=== PATIENT | female | born 1985 | race African-American/Black ===

== ENCOUNTER 2020-06-25 19:51 | Emergency (ER) | payer SELFPAY ==
[2020-06-25 20:05] VITALS: BP 135/88
[2020-06-25] MEDS ORDERED: IBUPROFEN 800 MG TABLET PO ONE (20:07)
--- NOTE | 2020-06-25 20:12 | ER Document Report ---
ED Extremity Problem, Lower - General Chief Complaint: Fall Injury Stated Complaint: FALL/RIGHT PINKY TOE INJURY/RIGHT LEG PAIN Time Seen by Provider: 06/25/20 19:58 Primary Care Provider: [facility] ([facility]) [Provider Group] - Follow up as needed ANDERS CANTU DO [NO LOCAL MD] - Follow up as needed Mode of Arrival: Ambulatory Information source: Patient Notes: 35-year-old female presented to ED for complaint of pain to the fifth toe on the right foot as well as the foot and ankle. She states 2 nights ago she was standing on a stool in the closet when she leaned against the wall she the stool cleaned out and she fell caught catching her toe on 1 of the rungs of the stool. She states she has been taking Tylenol and Motrin and it is not been helping with the pain. She states the toe is extremely painful. She states she has some burning in her ankle also. She is alert oriented respirations regular nonlabored speaking in full sentences. She states she took Tylenol yesterday day but has not had anything today. She states she does have a past history of sciatica with 3 back fusions. She does have plates and screws in her back. States her last menstrual cycle was June 18. REVIEW OF SYSTEMS: CONSTITUTIONAL : Denies fever, chills, or sweats. Denies recent illness. CARDIOVASCULAR: Denies chest pain. RESPIRATORY: Denies cough, cold, or chest congestion. Denies shortness of breath, difficulty breathing, or wheezing. MUSCULOSKELETAL: Pain in right foot fifth toe and ankle after falling on a stool catching her toe on the rungs of the stool SKIN: Denies rash or skin lesions. ALL OTHER SYSTEMS REVIEWED AND NEGATIVE. VITAL SIGNS: Within normal limits. GENERAL: No acute distress, non-toxic appearance. HEAD: Normal with no signs of head trauma. NECK: Normal range of motion, no tenderness, supple, no lymphadenopathy, No adenopathy, no JVD. CHEST: Clear breath sounds bilaterally. No wheezes, rales, or rhonchi. CARDIAC: Regular rate and rhythm. S1 and S2, without murmurs, gallops, or rubs. MUSCULOSKELETAL: Tenderness to right ankle/foot/fifth toe swelling and bruising to fifth toe NEUROLOGICAL: Alert and oriented x 3. No focal sensory or strength deficits. Speech normal. Follows commands appropriately. SKIN: Normal appearance with no rashes or lesions. - HPI Patient complains to provider of: Injury, Pain, Swelling Location: Ankle, Foot, 5th Toe Occurred: Other - 2 Days ago Where: Home, Indoors Onset/Duration: Gradual Quality of pain: Achy, Burning Severity: Moderate Pain Level: 3 Context: Fell Recent injury: Yes Associated symptoms: Painful ambulation Exacerbated by: Hanging down, Movement, Walking Relieved by: Elevation, Ice, Rest - Related Data Allergies/Adverse Reactions: No Known Allergies Allergy (Unverified 06/25/20 20:18) Past Medical History - General Information source: Patient - Social History Smoking Status: Never Smoker Frequency of alcohol use: None Drug Abuse: None Lives with: Family Family History: Reviewed & Not Pertinent Patient has suicidal ideation: No Pulmonary Medical History: Reports: None EENT Medical History: Reports: None Neurological Medical History: Reports: None Endocrine Medical History: Reports: None Renal/ Medical History: Reports: None Malignancy Medical History: Reports: None GI Medical History: Reports: None Musculoskeletal Medical History: Reports Hx Arthritis, Reports Hx Musculoskeletal Trauma Skin Medical History: Reports None Psychiatric Medical History: Reports: None Traumatic Medical History: Reports: None Infectious Medical History: Reports: None Past Surgical History: Reports: Hx Orthopedic Surgery - 3 back fusions with plates and screws - Immunizations Immunizations up to date: Yes Hx Diphtheria, Pertussis, Tetanus Vaccination: Yes Physical Exam - Vital signs Vitals: Temp Pulse Resp BP Pulse Ox 98.1 F 65 18 135/88 H 100 06/25/20 20:02 06/25/20 20:02 06/25/20 20:02 06/25/20 20:02 06/25/20 20:02 Course - Re-evaluation Re-evalutation: 06/25/20 22:44 The patient is nontoxic appearing with stable vitals. They are afebrile. Ankle exam shows no deformities with no obvious ligament instability. There is a normal pulse and sensation distally. There is no redness or signs of infection. X-rays show no acute fracture per the radiologist. Patient will be placed in an Rober wrap for comfort. Patient will be instructed to follow-up with not better in 1 week, sooner for increasing pain, fever, redness, numbness, tingling, weakness, any further concerns. Patient will be instructed to rest, ice, elevate their ankle. - Vital Signs Vital signs: Temp Pulse Resp BP Pulse Ox 98.1 F 65 18 135/88 H 100 06/25/20 20:15 06/25/20 20:02 06/25/20 20:02 06/25/20 20:02 06/25/20 20:02 - Diagnostic Test Radiology reviewed: Image reviewed, Reports reviewed Procedures - Immobilization Right Ankle Time completed: 22:52 Pre-Proc Neuro Vasc Exam: Normal Immobilizer type: Rober wrap Performed by: RN Post-Proc Neuro Vasc Exam: Normal Alignment checked and good: Yes Discharge - Discharge Clinical Impression: Foot contusion Qualifiers: Encounter type: initial encounter Laterality: right Qualified Code(s): S90.31XA - Contusion of right foot, initial encounter Contusion of fifth toe, right Qualifiers: Encounter type: initial encounter Qualified Code(s): S90.121A - Contusion of right lesser toe(s) without damage to nail, initial encounter Right ankle pain Qualifiers: Chronicity: acute Qualified Code(s): M25.571 - Pain in right ankle and joints of right foot Condition: Stable Disposition: HOME, SELF-CARE Additional Instructions: CONTUSION: Your injury has resulted in a contusion -- a crushing of the deep tissues. No injury to important structures was detected during the physician's exam. Contusions vary in the amount of pain they cause, and in the length of time required for healing. Typically, the area will become bruised, and will remain painful to touch for two or three weeks. However, most patients are back to working and playing within a few days. After the initial period of rest and cold-packs, your symptoms (together with the doctor's recommendations) will determine how rapidly you can get back to full activity. Usually this means "do what feels okay, but don't do things that hurt." If re-examination was recommended, it's important to follow up as instructed. Call the doctor or return any time if pain increases, if swelling becomes severe, if you develop numbness or weakness in an injured extremity, or if any other alarming symptoms occur. SPRAINED ANKLE: Your sprained ankle results from stretching or tearing of the ligaments which support the ankle. This usually results from twisting the foot inward and under. The ligaments will require time and protection in order to heal properly. Many ankle sprains are quite disabling, and should be taken seriously. The usual treatment for an ankle sprain is cold packs; protection with tape, splints, or wraps; elevation; and staying off the ankle for at least a day. As the ankle improves, you can walk IF it's not painful to bear weight. Sports are best postponed until healing is complete. More serious sprains usually require strengthening exercises after early healing. Your physician has assessed the seriousness of the ligament injury to your ankle. However, the treatment may change, depending on how your ankle progresses. If further exams were recommended, it is important that you follow through. Call the doctor if your foot becomes numb, painful, or severely swollen. ROBER WRAP: A compression dressing (rober wrap) has been placed. This helps hold the area still. It limits swelling and internal bleeding. The wrap should be comfortably snug -- not tight. You should feel a sense of pressure, but not severe pain under the wrap. Unless the physician tells you otherwise, you can adjust the wrap for comfort. If the wrap causes symptoms suggesting it's too tight -- uncomfortable pressure, swelling or discoloration beyond the wrap, numbness, or severe pain -- you must loosen the wrap. If these symptoms don't resolve promptly, return for re-evaluation. ICE & ELEVATION: Apply ice packs frequently against the painful area. Many different schedules are recommended, such as "20 minutes on, 20 minutes off" or "one hour ice, two hours rest." If you need to work, you may need to go longer between ice treatments. You should plan to have the area ice packed AT LEAST one-fourth of the time. The ice should be applied over the wrap, tape, or splint, or over a layer of cloth -- not directly against the skin. Some ice bags have a built-in cloth and can be put directly on the skin. Your injured part should be elevated as much as possible over the next 48 hours. Try to keep the injury above the level of the heart. Avoid use of the injured area. Elevation and rest will decrease the swelling. USE OF [id number]-[id number] IBUPROFEN: Ibuprofen (Advil, Nuprin, Medipren, Motrin IB) is a medication for fever and pain control. In addition, it has anti- inflammatory effects which may be beneficial, especially in the treatment of injuries. It's best to take ibuprofen with food. Persons with ulcer disease or allergy to aspirin should notify their physician of this before taking ibuprofen. Ibuprofen can be given every four to six hours, for a total of four doses daily. Age Pain or fever dose Antiinflammatory dose 6-8 yr 200 mg (1 tab) 200 mg (1 tab) 9-11 yr 200 mg (1 tab) 200-400 mg (1-2 tab) 11-14 yr 200-400 mg (1-2 tab) 400 mg (2 tab) 15-adult 400 mg (2 tab) 600 mg (3 tab) USE OF TYLENOL (ACETAMINOPHEN): Acetaminophen may be taken for pain relief or fever control. It's much safer than aspirin, offering a wider range of "safe" dosages. It is safe during . Some brand names are Tylenol, Panadol, Datril, Anacin 3, Tempra, and Liquiprin. Acetaminophen can be repeated every four hours. The following are maximum recommended dosages: WEIGHT Dose Drops Elixir Chewable(80mg) (LBS.) drprs=droppers tsp=teaspoon 6 40 mg 0.4 ml (1/2) 6-11 80 mg 0.8 ml (full) tsp 1 tab 12-16 120 mg 1 1/2 drprs 3/4 tsp 1 1/2 tabs 17-23 160 mg 2 drprs 1 tsp 2 tabs 24-30 240 mg 3 drprs 1 1/2 tsp 3 tabs 30-35 320 mg 2 tsp 4 tabs 36-41 360 mg 2 1/4 tsp 4 1/2 tabs 42-47 400 mg 2 1/2 tsp 5 tabs 48-53 480 mg 3 tsp 6 tabs 54-59 520 mg 3 1/4 tsp 6 1/2 tabs 60-64 560 mg 3 1/2 tsp 7 tabs 65-70 600 mg 3 3/4 tsp 7 1/2 tabs 71-76 640 mg 4 tsp 8 tabs 77-82 720 mg 4 1/2 tsp 9 tabs 83-88 800 mg 5 tsp 10 tabs >89 pounds or adults 650 mg to 900 mg Acetaminophen can be repeated every four hours. Maximum dose not to exceed 4000 mg a day. These maximum recommended dosages are slightly higher than the dosages written on the product container, but these dosages are very safe and below the toxic dosage for acetaminophen. FOLLOW-UP CARE: If you have been referred to a physician for follow-up care, call the physicians office for an appointment as you were instructed or within the next two days. If you experience worsening or a significant change in your symptoms, notify the physician immediately or return to the Emergency Department at any time for re-evaluation. Forms: Elevated Blood Pressure Referrals: ANDERS CANTU DO [NO LOCAL MD] - Follow up as needed [facility] [Provider Group] - Follow up as needed
--- NOTE | 2020-06-25 21:15 | RADIOLOGY REPORT (SQ) ---
EXAM DESCRIPTION: XR FOOT 3 OR MORE VIEWS COMPLETED DATE/TME: 06/25/2020 20:06 CLINICAL HISTORY: 35 years, Female, Fall, pain foot ankle and fifth toe COMPARISON: None. NUMBER OF VIEWS: 3 views TECHNIQUE: Frontal, oblique, and lateral radiographs were obtained LIMITATIONS: None. FINDINGS: Visualized osseous structures are normal in appearance. Joint spaces are well-maintained. No acute fracture or dislocation is evident. IMPRESSION: No acute osseous anomaly. copyright 2010 [employer]- All Rights Reserved
--- NOTE | 2020-06-25 21:16 | RADIOLOGY REPORT (SQ) ---
EXAM DESCRIPTION: X-ray, three views of the right ankle CLINICAL HISTORY: 35 years Female, Fall, pain foot ankle and fifth toe COMPARISON: None. FINDINGS: Bone mineralization is normal. Alignment is anatomic. No fracture is seen. Soft tissues are unremarkable. No erosions or periostitis. IMPRESSION: Unremarkable radiographs of the right ankle.
== END 2020-06-25 22:26 | disposition home or self-care (01) ==
LOC: ER 19:51
DX: S90.31XA Contusion of right foot, initial encounter (principal); S90.121A Contusion of right lesser toe(s) without damage to nail, initial encounter; M25.571 Pain in right ankle and joints of right foot; M79.604 Pain in right leg; M79.671 Pain in right foot; M79.89 Other specified soft tissue disorders; W19.XXXA Unspecified fall, initial encounter
CPT/HCPCS: 99283

== ENCOUNTER 2020-10-15 13:23 | Emergency (ER) | payer SELFPAY ==
--- NOTE | 2020-10-15 15:22 | RADIOLOGY REPORT (SQ) ---
EXAM DESCRIPTION: KNEE LEFT 4 VIEW IMAGES COMPLETED DATE/TIME: 10/15/2020 3:14 pm REASON FOR STUDY: pain COMPARISON: None. NUMBER OF VIEWS: Four views. TECHNIQUE: AP, lateral, and both oblique radiographic images acquired of the left knee. LIMITATIONS: None. FINDINGS: MINERALIZATION: Normal. BONES: No acute fracture or dislocation. No worrisome bone lesions. JOINT: No effusion. SOFT TISSUES: No soft tissue swelling. No radio-opaque foreign body. OTHER: No other significant finding. IMPRESSION: NEGATIVE STUDY OF THE LEFT KNEE. NO RADIOGRAPHIC EVIDENCE OF ACUTE INJURY. TECHNICAL DOCUMENTATION: JOB ID: [id number] 2010 [employer]- All Rights Reserved Reading location - IP/workstation name: [email or web address]
--- NOTE | 2020-10-15 15:23 | RADIOLOGY REPORT (SQ) ---
EXAM DESCRIPTION: KNEE RIGHT 4 VIEWS IMAGES COMPLETED DATE/TIME: 10/15/2020 3:14 pm REASON FOR STUDY: pain COMPARISON: None. NUMBER OF VIEWS: Four views. TECHNIQUE: AP, lateral, and both oblique radiographic images acquired of the right knee. LIMITATIONS: None. FINDINGS: MINERALIZATION: Normal. BONES: No acute fracture or dislocation. No worrisome bone lesions. JOINT: No effusion. SOFT TISSUES: No soft tissue swelling. No radio-opaque foreign body. OTHER: No other significant finding. IMPRESSION: NEGATIVE STUDY OF THE RIGHT KNEE. NO RADIOGRAPHIC EVIDENCE OF ACUTE INJURY. TECHNICAL DOCUMENTATION: JOB ID: [id number] 2010 [employer]- All Rights Reserved Reading location - IP/workstation name: [email or web address]
--- NOTE | 2020-10-15 16:25 | ER Document Report ---
ED General Pain - General Chief Complaint: BILATERAL KNEE Stated Complaint: KNEE PAIN Time Seen by Provider: 10/15/20 14:55 Primary Care Provider: PEDRO,NO [Primary Care Provider] - Follow up as needed - HPI Notes: Chief complaint: Bilateral knee pain History of present illness: Generally healthy 35-year-old female taking no regular medications with no known allergies other than IV contrast presents to the emergency department complaining of chronic bilateral knee pain which has been going on for several years. She has had intermittent stiffness and pain. She denies redness or visible swelling. No fever chills. She occasionally takes Tylenol or [id number] NSAIDs with little change in symptoms. 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 She denies any history of knee trauma. She denies any sensation of the knee is locking or giving way. - Related Data Allergies/Adverse Reactions: IV contrast Allergy (Uncoded 10/15/20 15:12) Past Medical History - General Information source: Patient, Relative - Social History Smoking Status: Never Smoker Frequency of alcohol use: None Drug Abuse: None Family History: Reviewed & Not Pertinent Patient has homicidal ideation: No Musculoskeletal Medical History: Reports Hx Arthritis, Reports Hx Musculoskeletal Trauma Past Surgical History: Reports: Hx Orthopedic Surgery - 3 back fusions with plates and screws - Immunizations Immunizations up to date: Yes Hx Diphtheria, Pertussis, Tetanus Vaccination: Yes Review of Systems - Review of Systems Notes: Constitutional: Negative for fever. HENT: Negative for sore throat. Eyes: Negative for visual changes. Cardiovascular: Negative for chest pain. Respiratory: Negative for shortness of breath. Gastrointestinal: Negative for abdominal pain, vomiting or diarrhea. Genitourinary: Negative for dysuria. Musculoskeletal: As per HPI. Skin: Negative for rash. Neurological: Negative for headaches, weakness or numbness. 10 point ROS negative except as marked above and in HPI. Physical Exam - Vital signs Vitals: Temp Pulse Resp BP Pulse Ox 98.1 F 65 12 135/85 H 100 10/15/20 13:34 10/15/20 13:34 10/15/20 13:34 10/15/20 13:34 10/15/20 13:34 - Notes Notes: GENERAL: Well-developed well-nourished female approximately stated age appearing in no acute distress. SKIN: Good turgor no rashes. HEAD: Normocephalic atraumatic. EYES: PERRLA. EOMI. Conjunctivae and sclerae clear. NECK: Supple. No masses or thyromegaly. No adenopathy. Carotids 2+ without bruits. No JVD. BACK: Symmetrical without tenderness. CHEST: Respirations unlabored. Breath sounds clear and symmetrical. HEART: Regular rhythm. No murmur gallop or rub. ABDOMEN: Soft nontender without masses, organomegaly or rebound. Bowel sounds normally active. No bruits. EXTREMITIES: Prominent crepitus of both knees. Mild tenderness over the patella bilaterally. No visible swelling, redness or warmth. Good range of motion. No gross ligamentous instability. No edema. No calf tenderness. Cap refill less than 1.5 seconds. Dorsalis pedis and posterior tibial pulses 3+ and symmetrical. NEUROLOGICAL: Alert and oriented x3. Nonfocal. PSYCHIATRIC: Appropriate affect. Course - Vital Signs Vital signs: Temp Pulse Resp BP Pulse Ox 98.1 F 65 12 135/85 H 100 10/15/20 13:34 10/15/20 13:34 10/15/20 13:34 10/15/20 13:34 10/15/20 13:34 - Laboratory Results Critical Laboratory Results Reviewed: No Critical Results Attending or Supervising Physician who Reviewed Labs: ADAMA GORE - Radiology Results Radiology Results Interpreted: 10/15/20 16:23 Knee X-Ray 10/15/20 14:38 IMPRESSION: NEGATIVE STUDY OF THE LEFT KNEE. NO RADIOGRAPHIC EVIDENCE OF ACUTE INJURY. Knee X-Ray 10/15/20 14:38 IMPRESSION: NEGATIVE STUDY OF THE RIGHT KNEE. NO RADIOGRAPHIC EVIDENCE OF ACUTE INJURY. Critical Radiology Results Reviewed: No Critical Results Attending or Supervising Physician who Reviewed Radiology: ADAMA GORE Discharge - Discharge Clinical Impression: Chondromalacia of both patellae Condition: Stable Disposition: HOME, SELF-CARE Additional Instructions: Chondromalacia Your knee pain is probably due to cartilage irritation under the knee cap. This is called chondromalacia. It occurs when the knee cap isn't lined up perfectly on the joint. The cartilage on the back of the knee cap rubs on the bone. Climbing stairs and rising from a chair often cause pain. Chondromalacia is most common in young and active people. Treat the pain with ice packs and anti-inflammatory pain medicine. Avoid activities that make the pain worse. Isometric exercises to strengthen the quadriceps (thigh) muscle may help prevent further episodes. (Deep-knee bends and "quad machine" weight-lifting tend to make it worse.) In some cases, shoe inserts to correct imbalances in the legs or feet may be prescribed. Support for the knee cap with a light brace may also be helpful. Return if the knee becomes more swollen and painful, or if the symptoms aren't improving with time. You will be provided a referral for primary care physician. Medication has been prescribed for you also. You may return here as needed for new or worsening symptoms. Prescriptions: Naproxen 500 mg PO BID PRN #14 tablet PRN Reason: Referrals: PEDRO,NO [Primary Care Provider] - Follow up as needed [facility] [Provider Group] - Follow up as needed
[2020-10-15 16:49] VITALS: BP 128/80
== END 2020-10-15 16:48 | disposition home or self-care (01) ==
LOC: ER 13:23
DX: M22.42 Chondromalacia patellae, left knee (principal); M22.41 Chondromalacia patellae, right knee; M25.561 Pain in right knee; M25.562 Pain in left knee
CPT/HCPCS: 99283

== ENCOUNTER 2020-11-24 13:30 | Emergency (ER) | payer SELFPAY ==
--- NOTE | 2020-11-24 13:51 | ER Document Report ---
ED Medical Screen (RME) - General Stated Complaint: BILATERAL LEG PAIN/WEAKNESS Time Seen by Provider: 11/24/20 13:44 Primary Care Provider: ZULEMA VASQUEZ [Primary Care Provider] - Follow up as needed Notes: Patient presents complaining of lower leg pain for the past 6 months. Patient states sometimes it is her right leg sometimes at her left leg, today she complains primarily of left lower extremity pain. Patient states for the past 3 months she has been having unexplained bruising to the lower extremities. Patient states she did have some dizziness today. Patient denies any personal history of DVT or PE. Patient denies any history of recent travel or immobilization. Patient reports a family history of DVT and she was concerned about this today. Patient has also a history of previous spinal fusion although feels that her left lower extremity pain is not related to any back issues. I have greeted and performed a rapid initial assessment of this patient. A comprehensive ED assessment and evaluation of the patient, analysis of test results and completion of the medical decision making process will be conducted by additional ED providers. - Related Data Allergies/Adverse Reactions: IV contrast Allergy (Uncoded 10/15/20 15:12) Past Medical History Musculoskeltal Medical History: Reports Hx Arthritis, Reports Hx Musculoskeletal Trauma Past Surgical History: Reports: Hx Orthopedic Surgery - 3 back fusions with plates and screws - Immunizations Immunizations up to date: Yes Hx Diphtheria, Pertussis, Tetanus Vaccination: Yes Physical Exam - Vital signs Vitals: Temp Pulse Resp BP Pulse Ox 98.1 F 68 20 137/91 H 99 11/24/20 13:34 11/24/20 13:34 11/24/20 13:34 11/24/20 13:34 11/24/20 13:34 - General General appearance: Appears well, Alert Notes: Normal gait, tenderness to posterior lateral aspect of the left lower extremity Course - Vital Signs Vital signs: Temp Pulse Resp BP Pulse Ox 98.1 F 68 20 137/91 H 99 11/24/20 13:34 11/24/20 13:34 11/24/20 13:34 11/24/20 13:34 11/24/20 13:34 Doctor's Discharge - Discharge Referrals: ZULEMA VASQUEZ [Primary Care Provider] - Follow up as needed
--- NOTE | 2020-11-24 14:09 | ER Document Report ---
ED General - General Stated Complaint: BILATERAL LEG PAIN/WEAKNESS Time Seen by Provider: 11/24/20 13:44 Primary Care Provider: ZULEMA VASQUEZ [NO LOCAL MD] - Follow up as needed Notes: HPI: 35-year-old female that states for the last 2 to 3 weeks she has had some alternating pain to bilateral lower extremities. 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 She denies any chest pain, fevers, shortness of breath, or vomiting. Family history of DVT. No recent trips or travel. She states for the last few days it has been the left leg much more than the right leg. She denies any pain to the right leg at this time. ROS: See HPI All other review of systems reviewed and otherwise negative Reviewed vital signs and nursing note as charted by RN. PHYSICAL EXAM: CONSTITUTIONAL: Alert and oriented and responds appropriately to questions. We ll-appearing; well-nourished HEAD: Normocephalic; atraumatic CARD: Regular rate and rhythm; no murmurs; symmetric distal pulses RESP: Normal chest excursion without splinting or tachypnea; breath sounds clear and equal bilaterally; no wheezes, no rhonchi, no rales ABD/GI: Normal bowel sounds; non-distended; soft, non-tender BACK: The back appears normal and is non-tender to palpation EXT: Normal ROM in all joints; non-tender to palpation; no edema; excellent strong distal pulses SKIN: No acute lesions noted NEURO: CN 2-12 intact; 5/5 bilateral upper and lower extremity strength with se nsation intact to light touch PSYCH: The patient's mood and manner are appropriate. Grooming and personal hygiene are appropriate. - Related Data Allergies/Adverse Reactions: IV contrast Allergy (Uncoded 10/15/20 15:12) Past Medical History - Social History Smoking Status: Unknown if Ever Smoked Family History: Reviewed & Not Pertinent Musculoskeletal Medical History: Reports Hx Arthritis, Reports Hx Musculoskeletal Trauma Past Surgical History: Reports: Hx Orthopedic Surgery - 3 back fusions with plates and screws - Immunizations Immunizations up to date: Yes Hx Diphtheria, Pertussis, Tetanus Vaccination: Yes Physical Exam - Vital signs Vitals: Temp Pulse Resp BP Pulse Ox 98.1 F 68 20 137/91 H 99 11/24/20 13:34 11/24/20 13:34 11/24/20 13:34 11/24/20 13:34 11/24/20 13:34 Course - Re-evaluation Re-evalutation: 11/24/20 14:08 Given the above history and physical examination, we will obtain a cardiac panel, BNP, Doppler ultrasound of the left lower extremity, and an x-ray of the chest. I would like to evaluate for the possibility of DVT, heart failure, low albumin level, or other etiology of the patient's symptomatology. 11/24/20 14:23 EKG shows heart of 59, normal sinus rhythm, normal axis, no obvious ST elevation or depression, inverted T waves in leads III and V3. Flattening T waves in aVF, V2 and V4 11/24/20 16:00 Labs, x-ray, EKG, troponin, BNP as recorded. No change in exam. Doppler ultrasound with a direct discussion with the radiologist shows no DVT. Patient will be discharged home with strict return precautions and follow-up with the primary care physician. - Vital Signs Vital signs: Temp Pulse Resp BP Pulse Ox 98.1 F 68 20 137/91 H 99 11/24/20 13:34 11/24/20 13:34 11/24/20 13:34 11/24/20 13:34 11/24/20 13:34 - Laboratory Results Result Diagrams: 11/24/20 13:55 11/24/20 13:55 Critical Laboratory Results Reviewed: No Critical Results - Radiology Results Critical Radiology Results Reviewed: No Critical Results Discharge - Discharge Clinical Impression: Left leg pain, Lower extremity edema Condition: Good Disposition: HOME, SELF-CARE Additional Instructions: Come back immediately for any worsening leg pain, swelling, chest pain, fever, shortness of breath, or any other acute problems. Please follow-up with the primary care physician for reassessment as discussed. Referrals: LOCALMD,NO [NO LOCAL MD] - Follow up as needed
[2020-11-24 14:20] LABS: HEMATOCRIT 41.8 % (36.0-47.0); HEMOGLOBIN 13.5 g/dL (12.0-15.5); MEAN CORPUSCULAR HEMOGLOBIN 27.7 pg (27.0-33.4); MEAN CORPUSCULAR HGB CONC 32.4 g/dL (32.0-36.0); MEAN CORPUSCULAR VOLUME 86 fl (80-97); PLATELET COUNT 186 10^3/uL (150-450); RED BLOOD COUNT 4.88 10^6/uL (3.72-5.28); RED CELL DISTRIBUTION WIDTH 13.9 % (11.5-14.0); WHITE BLOOD COUNT 10.4 10^3/uL (4.0-10.5)
[2020-11-24 14:22] LABS: INTERNATIONAL RATION (INR) 0.84; PROTHROMBIN TIME 11.7 SEC (11.4-15.4)
[2020-11-24 14:23] LABS: PARTIAL THROMBOPLASTIN TIME 30.9 SEC (23.5-35.8)
[2020-11-24 14:29] LABS: ALBUMIN 4.4 g/dL (3.5-5.0); ALKALINE PHOSPHATASE 78 U/L (38-126); ANION GAP 5 (5-19); ASPARTATE AMINO TRANSFERASE 22 U/L (14-36); BILIRUBIN,DIRECT 0.1 mg/dL (0.0-0.4); BILIRUBIN,TOTAL 0.6 mg/dL (0.2-1.3); BLOOD UREA NITROGEN 11 mg/dL (7-20); CALCIUM 9.4 mg/dL (8.4-10.2); CARBON DIOXIDE 28 mmol/L (22-30); CHLORIDE 106 mmol/L (98-107); GLUCOSE 84 mg/dL (75-110); POTASSIUM 4.6 mmol/L (3.6-5.0); TOTAL PROTEIN 7.5 g/dL (6.3-8.2)
[2020-11-24 14:52] LABS: ABSOLUTE LYMPHOCYTES# (MANUAL) 3.2 10^3/uL (0.5-4.7); ABSOLUTE MONOCYTES # (MANUAL) 0.8 10^3/uL (0.1-1.4); BASOPHILS % (MANUAL) 1 % (0-2); EOSINOPHILS % (MANUAL) 2 % (0-6); LYMPHOCYTES % (MANUAL) 31 % (13-45); MONOCYTES % (MANUAL) 8 % (3-13); SEGMENTED NEUTROPHILS % (MAN) 58 % (42-78); TOTAL CELLS COUNTED 100
[2020-11-24 14:56] LABS: OVALOCYTES SLIGHT; POIKILOCYTOSIS SLIGHT
[2020-11-24 14:57] LABS: PLATELET COMMENT ADEQUATE; POLYCHROMASIA SLIGHT
[2020-11-24 14:58] LABS: NT PRO BNP 55 pg/mL (<125)
[2020-11-24 14:59] LABS: TROPONIN I < 0.012 ng/mL
--- NOTE | 2020-11-24 15:05 | RADIOLOGY REPORT (SQ) ---
EXAM DESCRIPTION: CHEST SINGLE VIEW IMAGES COMPLETED DATE/TIME: 11/24/2020 2:33 pm REASON FOR STUDY: 34; lower extremity swelling COMPARISON: None. EXAM PARAMETERS: NUMBER OF VIEWS: One view. TECHNIQUE: Single frontal radiographic view of the chest acquired. RADIATION DOSE: NA LIMITATIONS: None. FINDINGS: LUNGS AND PLEURA: No opacities, masses or pneumothorax. No pleural effusion. MEDIASTINUM AND HILAR STRUCTURES: No masses. Contour normal. HEART AND VASCULAR STRUCTURES: Heart normal in size. Normal vasculature. BONES: No acute findings. HARDWARE: None in the chest. Hardware in the cervical spine. OTHER: No other significant finding. IMPRESSION: NO ACUTE RADIOGRAPHIC FINDING IN THE CHEST. TECHNICAL DOCUMENTATION: JOB ID: [id number] 2010 [employer]- All Rights Reserved Reading location - IP/workstation name: [email or web address]
--- NOTE | 2020-11-24 15:58 | RADIOLOGY REPORT (SQ) ---
EXAM DESCRIPTION: VENOUS UNILATERAL LOWER IMAGES COMPLETED DATE/TIME: 11/24/2020 3:14 pm REASON FOR STUDY: LLE pain, swelling COMPARISON: None. TECHNIQUE: Dynamic and static sood scale and color images acquired of the left leg venous system. Se lected spectral images acquired with additional compression and augmentation maneuvers. The contralat eral common femoral vein and saphenofemoral junction were also imaged. Images stored on PACS. LIMITATIONS: None. FINDINGS: COMMON FEMORAL: Normal phasicity, compression and augmentation. No visualized echogenic ma terial on sood scale. No defects on color images. FEMORAL: Normal compression and augmentation. No visualized echogenic material on sood scale. No defe cts on color images. POPLITEAL: Normal compression, augmentation. No visualized echogenic material on sood scale. No defec ts on color images. CALF VESSELS: Normal compression, augmentation. No visualized echogenic material on sood scale. No de fects on color images. GSV and SSV: Normal compression, augmentation. No visualized echogenic material on sood scale. No def ects on color images. ANY DEEP VENOUS INSUFFICIENCY: Not evaluated. ANY EVIDENCE OF POPLITEAL CYST: No. OTHER: No other significant finding. CONTRALATERAL COMMON FEMORAL VEIN AND SAPHENOFEMORAL JUNCTION: Normal phasicity, compression and augmentation. No visualized echogenic material on sood scale. No de fects on color images. IMPRESSION: NO EVIDENCE DVT OR SVT IN THE LEFT LEG. TECHNICAL DOCUMENTATION: JOB ID: [id number] 2010 [employer]- All Rights Reserved Reading location - IP/workstation name: [email or web address]
--- NOTE | 2020-11-24 17:31 | EKG REPORT ---
SEVERITY:- BORDERLINE ECG - SINUS RHYTHM BORDERLINE T ABNORMALITIES, ANTERIOR AND INFERIOR LEADS : Confirmed by: Hao Macedo MD 24-Nov-2020 17:31:02
[2020-11-24 17:52] VITALS: BP 122/89
== END 2020-11-24 17:52 | disposition home or self-care (01) ==
LOC: ER 13:30
DX: M79.605 Pain in left leg (principal); M79.604 Pain in right leg; R60.9 Edema, unspecified; R53.1 Weakness; R42 Dizziness and giddiness
CPT/HCPCS: 36415; 71045; 80053; 83880; 84484; 84703; 85025; 85610; 85730; 93005; 93010; 93971; 99285